=== PATIENT | female | born 1960 | race Caucasian/White ===

== ENCOUNTER 2018-10-15 06:33 | Day surgery (SDC) | payer BC, OTHER ==
[2018-10-15] MEDS ORDERED: Lactated Ringers 1,000 ML IV SCH (07:00)
[2018-10-15] MEDS ORDERED: Midazolam 1 MG/ML 2 ML SDV ONE (07:28)
[2018-10-15] MEDS ORDERED: Propofol 200 MG/20 ML SDV ONE (07:28)
[2018-10-15] MEDS ORDERED: fentaNYL 100 MCG/2 ML SDV ONE (07:28)
--- NOTE | 2018-10-15 12:12 | OR ---
DATE OF PROCEDURE: 10/15/2018 PREOPERATIVE DIAGNOSIS: Colon cancer screening. POSTOPERATIVE DIAGNOSIS: Small proximal right colon polyp, pandiverticulosis. PROCEDURE: Colonoscopy to the cecum with biopsy resection of small right colon polyp. SURGEON: Fausto Loredo MD ANESTHESIA: IV anesthesia with monitored anesthesia care. INDICATION: This 58-year-old white female is referred for a colonoscopy for colon cancer screening. She says her last one was done 10 years ago. I counseled her for the procedure, including risks and alternatives, and she gave her informed consent to proceed. DESCRIPTION OF PROCEDURE: The patient was placed in the left lateral decubitus position. IV anesthesia was administered by the Anesthesia Service. Time-out was held. A rectal exam was performed, which was unremarkable. The flexible video Olympus colonoscope was introduced through her anus, up her rectum and out her colon all the way to the cecum. En route, we saw both right and left-sided diverticula. There was no bleeding or inflammation associated with any of them. Once the cecum was reached, the scope was slowly withdrawn examining the mucosa throughout. In the proximal right colon, we saw a small polyp which was removed with a few bites of the biopsy forceps. The scope was withdrawn further with no other neoplastic lesions seen. The previously mentioned diverticula were noted. The scope was retroflexed in the rectum with the distal rectum appearing unremarkable. The scope was straightened and removed. She tolerated the procedure well. Fausto Loredo MD /[id number] MTDD
== END 2018-10-15 09:29 | disposition home or self-care (01) ==
LOC: JP.SDS 06:33
PROVIDERS: ATTEND Surgery
DX: Z12.11 Encounter for screening for malignant neoplasm of colon (principal); D12.2 Benign neoplasm of ascending colon; K57.30 Diverticulosis of large intestine without perforation or abscess without bleeding
CPT/HCPCS: 45380; J2250; J2704; J3010; J7120